=== PATIENT | male | born 1965 | race American Indian/Alaskan Native ===

== ENCOUNTER 2019-05-31 17:37 | Inpatient (IN) | payer OTHER ==
[2019-05-31] MEDS ORDERED: NACL 0.9% 500 ML 500 ML IV ONE (17:47)
--- NOTE | 2019-05-31 17:49 | Event Note ---
ED Screening Note Date of service: 05/31/19 Time: 17:47 ED Screening Note: This is a 54 y.o. M. that presents to the ER with N/V, cough, chest pain, and diaphoresis x 1 week. This initial assessment/diagnostic orders/clinical plan/treatment(s) is/are subject to change based on patients health status, clinical progression and re- assessment by fellow clinical providers in the ED. Further treatment and workup at subsequent clinical providers discretion. Patient/guardian urged not to elope from the ED as their condition may be serious if not clinically assessed and managed. Initial orders include: Labs, ekg, and CXR
[2019-05-31] MEDS ORDERED: MAXIPIME/NS 2 GM/100 ML 2 GM/100 ML BAG IV ONE (18:01)
--- NOTE | 2019-05-31 18:05 | Emergency Department Report ---
ED Shortness of Breath HPI - General Chief Complaint: Dyspnea/Respdistress Stated Complaint: SOB/FEVER/VOMITING Time Seen by Provider: 05/31/19 17:55 Source: patient Mode of arrival: Ambulatory Limitations: No Limitations - History of Present Illness Initial Comments: Patient is a 54-year-old male presents emergency room with complaints of shortness of breath, difficulty breathing, fever, chills, cough and nausea vomiting. Patient states his cough is worsening. Patient states this morning he started having shortness of breath. Patient denies chest pain. Patient denies abdominal pain. Patient states he is sweating a lot. Patient denies blood in his vomit. Patient states he simply is not feeling well. MD Complaint: shortness of breath, cough -: Sudden Severity: severe Consistency: constant Improves With: rest Worsens With: exertion, coughing, inspiration Context: recent URI Associated Symptoms: fever, cough, sputum production, nausea/vomiting Treatments Prior to Arrival: none - Related Data Home Oxygen Therapy: No Home Medications Medication Instructions Recorded Confirmed Last Taken No Known Home Medications [No 05/31/19 05/31/19 Unknown Reported Home Medications] Allergies Allergy/AdvReac Type Severity Reaction Status Date / Time No Known Allergies Allergy Unverified 05/31/19 17:41 ED Review of Systems ROS: Stated complaint: SOB/FEVER/VOMITING Other details as noted in HPI Constitutional: chills, diaphoresis, fever Eyes: denies: eye pain, eye discharge, vision change ENT: denies: ear pain, throat pain Respiratory: cough, shortness of breath. denies: wheezing Cardiovascular: denies: chest pain, palpitations Endocrine: no symptoms reported Gastrointestinal: nausea, vomiting. denies: abdominal pain, diarrhea Genitourinary: denies: urgency, dysuria Musculoskeletal: denies: back pain, joint swelling, arthralgia Skin: denies: rash, lesions Neurological: denies: headache, weakness, paresthesias Psychiatric: denies: anxiety, depression Hematological/Lymphatic: denies: easy bleeding, easy bruising ED Past Medical Hx - Past Medical History Previous Medical History?: Yes Hx Hypertension: Yes - Surgical History Past Surgical History?: No - Family History Family history: no significant - Social History Smoking Status: Never Smoker Substance Use Type: None - Medications Home Medications: Home Medications Medication Instructions Recorded Confirmed Last Taken Type No Known Home Medications [No 05/31/19 05/31/19 Unknown History Reported Home Medications] ED Physical Exam - General Limitations: No Limitations General appearance: alert, in distress, other (appears ill.) - Head Head exam: Present: atraumatic, normocephalic - Eye Eye exam: Present: normal appearance, PERRL Pupils: Present: normal accommodation - ENT ENT exam: Present: mucous membranes dry - Neck Neck exam: Present: normal inspection - Respiratory Respiratory exam: Present: respiratory distress, rhonchi. Absent: wheezes - Cardiovascular Cardiovascular Exam: Present: regular rate, normal rhythm. Absent: systolic mur mur, diastolic murmur, rubs, gallop - GI/Abdominal GI/Abdominal exam: Present: soft, normal bowel sounds. Absent: distended, tenderness, guarding - Rectal Rectal exam: Present: deferred - Extremities Exam Extremities exam: Present: normal inspection - Back Exam Back exam: Present: normal inspection - Neurological Exam Neurological exam: Present: alert, oriented X3 - Psychiatric Psychiatric exam: Present: normal affect, normal mood - Skin Skin exam: Present: warm, dry, intact, normal color. Absent: rash ED Course Vital Signs 05/31/19 05/31/19 05/31/19 17:46 17:55 18:01 Temperature 99.7 F H Pulse Rate 130 H 124 H 123 H Respiratory 22 19 Rate Blood Pressure 204/109 O2 Sat by Pulse 96 Oximetry 05/31/19 05/31/19 05/31/19 18:15 18:31 18:45 Temperature Pulse Rate 121 H 123 H 120 H Respiratory 25 H 29 H 27 H Rate Blood Pressure 186/108 210/116 O2 Sat by Pulse 91 87 Oximetry 05/31/19 05/31/19 05/31/19 18:55 19:00 19:15 Temperature Pulse Rate 121 H 122 H Respiratory 27 H 27 H Rate Blood Pressure 210/110 198/105 200/107 O2 Sat by Pulse 96 97 Oximetry 05/31/19 05/31/19 05/31/19 19:30 19:45 20:00 Temperature Pulse Rate 127 H 125 H 124 H Respiratory 22 32 H 32 H Rate Blood Pressure 195/107 195/107 200/111 O2 Sat by Pulse 99 99 98 Oximetry 05/31/19 05/31/19 05/31/19 20:15 20:25 20:30 Temperature 102.4 F H Pulse Rate 130 H 130 H Respiratory 25 H 17 Rate Blood Pressure 200/111 190/128 O2 Sat by Pulse 99 100 Oximetry 05/31/19 05/31/19 05/31/19 20:45 21:00 21:15 Temperature Pulse Rate 124 H 119 H 116 H Respiratory 31 H 20 17 Rate Blood Pressure 190/128 181/106 181/106 O2 Sat by Pulse 99 99 99 Oximetry 05/31/19 05/31/19 21:23 21:30 Temperature 99.7 F H Pulse Rate 115 H Respiratory 28 H Rate Blood Pressure 174/100 O2 Sat by Pulse 98 Oximetry - Reevaluation(s) Reevaluation #1: Initial evaluation done. Patient found to be tachycardic and hypoxic. Patient will be given fluids and placed on oxygen. Patient appears ill. 05/31/19 18:05 Reevaluation #2: Patient's heart rate is same. Patient still appears ill. Patient's oxygen saturation is better on 3 L of O2. Patient to be given a liter of fluids and his heart rate is still 123. Patient receiving fluids and antibiotics at this time. I discussed all results with patient. I discussed plan of care outpatient. Patient agrees to plan admission. Patient will be admitted to the hospitalist service. 05/31/19 19:05 - Consultations Consultation #1: Hospitalist consult for admission. Hospitalist to admit patient and assume of care patient. 05/31/19 19:10 ED Medical Decision Making - Lab Data Result diagrams: 05/31/19 18:11 05/31/19 18:11 - EKG Data -: EKG Interpreted by Me EKG shows normal: sinus rhythm, axis, intervals, QRS complexes, ST-T waves Rate: tachycardia - Radiology Data Radiology results: report reviewed interpreted by me: Left lung pneumonia CHEST 1 VIEW INDICATION: possible Sepsis. COMPARISON: None FINDINGS: SUPPORT DEVICES: None. HEART / MEDIASTINUM: No significant abnormality. LUNGS / PLEURA: Faint airspace changes left lower lobe ADDITIONAL FINDINGS: IMPRESSION: 1. Inflammatory process left lower lobe is a concern - Medical Decision Making Patient is a 54-year-old male that presents mentioned complaints of fever, cough, shortness of breath and nausea vomiting patient found to be tachycardic and hypoxic in triage. Patient brought immediately to a 2 acute care side of the ER. Patient given antibiotics and fluids. Patient is tachycardic with a liter of fluid. Patient admitted to the hospitalist service. Patient given antibiotics immediately. Patient agrees with plan of care. Patient's labs essentially unremarkable. Patient's last consistent with dehydration. Precise visit 2. Patient's chest x-ray shows left sided pneumonia - Differential Diagnosis shortness of breath. Fever. Cough.pna. sirs. hypoxia. Sepsis. Critical Care Time: Yes Critical care attestation.: If time is entered above; I have spent that time in minutes in the direct care of this critically ill patient, excluding procedure time. Critical Care Time: 45 minutes ED Disposition Clinical Impression: Tachycardia, SIRS (systemic inflammatory response syndrome), Hypertensive emergency, SOB (shortness of breath), Difficulty breathing, Cough, Hypoxia Pneumonia Qualifiers: Pneumonia type: due to unspecified organism Laterality: left Lung location: lower lobe of lung Qualified Code(s): J18.1 - Lobar pneumonia, unspecified organism Fever Qualifiers: Fever type: unspecified Qualified Code(s): R50.9 - Fever, unspecified Disposition: DC-09 OP ADMIT IP TO THIS HOSP Is pt being admited?: Yes Does the pt Need Aspirin: No Condition: Critical Time of Disposition: 19:08
[2019-05-31 18:23] LABS: Hemoglobin 13.7 gm/dl (11.8-15.2); Mean Corpuscular HGB Conc 35 % (32-34); Mean Corpuscular Volume 93 fl (84-94); Platelet Count 145 K/mm3 (140-440); Red Cell Distribution Width 14.2 % (13.2-15.2)
--- NOTE | 2019-05-31 18:23 | XRay Report ---
CHEST 1 VIEW INDICATION: possible Sepsis. COMPARISON: None FINDINGS: SUPPORT DEVICES: None. HEART / MEDIASTINUM: No significant abnormality. LUNGS / PLEURA: Faint airspace changes left lower lobe ADDITIONAL FINDINGS: IMPRESSION: 1. Inflammatory process left lower lobe is a concern Signer Name: Esdras Lucas MD Signed: 05/31/2019 6:19 PM Workstation Name: [id number]
[2019-05-31 18:36] LABS: INR 1.11 (0.87-1.13)
[2019-05-31 18:40] LABS: Alanine Aminotransferase 47 units/L (7-56); Albumin 4.3 g/dL (3.9-5); BUN/Creatinine Ratio 16; Blood Urea Nitrogen 13 mg/dL (9-20); Calcium 9.6 mg/dL (8.4-10.2); Hemolysis Index 0
[2019-05-31] MEDS ORDERED: NACL 0.9% 1000 ML IV ONE (18:47)
[2019-05-31] MEDS ORDERED: APRESOLINE IV ONE (18:47)
[2019-05-31] MEDS ORDERED: APRESOLINE ONE ×2 (18:50→22:05)
[2019-05-31] MEDS ORDERED: SODIUM CHLORIDE FLUSH SYRINGE 10 ML IV PRN (19:18)
[2019-05-31] MEDS ORDERED: ZOFRAN IV PRN (19:18)
[2019-05-31] MEDS ORDERED: PROVENTIL IH PRN (19:18)
[2019-05-31 19:54] LABS: Bilirubin,Urine NEG (Negative); Blood,Urine MOD (Negative); Color,Urine Amber (Yellow); Mucus,Urine FEW /HPF
[2019-05-31 20:01] LABS: Protein,Urine >500 mg/dL (Negative)
--- NOTE | 2019-05-31 20:17 | History and Physical Report ---
History of Present Illness Date of admission: 05/31/19 19:18 Chief complaint: I feel sick, and i cant breathe History of present illness: 54 YO Male with HTN presents to ED for evaluation. Pt states that he has experienced shortness of breath, generalized weakness, shaking chills, nausea, 2 episodes of vomiting over the 1 week, as well as nonproductive cough that is worsening over the past 2 days. Pt denies relief of symptoms with OTC medication. Pt transported to [facility] via private vehicle. Pt seen and evaluated in ED and found to have fever to 120.5, LLL Pneumonia complicated by SIRS and Acidosis. Pt denies CP, palpitations, trauma, BRBPR, skin rash, ingestion of food/water from new/different sources, or known ill contacts. Pt initiated on Pneumonia protocol and initiated on IV antibiotic therapy. Pt admitted to medical floor. No prior admission for review. No medication listed for reconciliation at time of admission. Past History Past Medical History: hypertension Past Surgical History: No surgical history, Other (reviewed) Social history: single. denies: smoking, alcohol abuse, prescription drug abuse Family history: hypertension Medications and Allergies Allergies Allergy/AdvReac Type Severity Reaction Status Date / Time No Known Allergies Allergy Unverified 05/31/19 17:41 Active Meds: Active Medications Acetaminophen (Tylenol) 650 mg PO Q4H PRN PRN Reason: Pain MILD(1-3)/Fever >100.5/KWON Albuterol (Proventil) 2.5 mg IH Q4HRT PRN PRN Reason: Shortness Of Breath Sodium Chloride (Nacl 0.45% 1000 Ml) 1,000 mls @ 75 mls/hr IV DIRECT [place] Ceftriaxone Sodium (Rocephin/Ns 2 Gm/100 Ml) 2 gm in 100 mls @ 200 mls/hr IV Q24HR [place]; Protocol Azithromycin 500 mg/ Sodium (Chloride) 250 mls @ 250 mls/hr IV Q24H [place]; Protocol Ondansetron HCl (Zofran) 4 mg IV Q8H PRN PRN Reason: Nausea And Vomiting Sodium Chloride (Sodium Chloride Flush Syringe 10 Ml) 10 ml IV BID [place] Sodium Chloride (Sodium Chloride Flush Syringe 10 Ml) 10 ml IV PRN PRN PRN Reason: LINE FLUSH Review of Systems Constitutional: fever, chills, weakness, malaise, no weight loss, no weight gain Ears, nose, mouth and throat: no ear pain, no ear discharge, no nose pain Cardiovascular: no chest pain, no orthopnea, no palpitations Respiratory: cough, shortness of breath, no excessive sputum, no hemoptysis Gastrointestinal: no nausea, no vomiting, no diarrhea, no constipation Genitourinary Male: no hematuria, no flank pain, no discharge, no urinary frequency, no urinary hesitancy Rectal: no pain, no incontinence, no bleeding Musculoskeletal: no neck stiffness, no neck pain, no shooting arm pain, no arm numbness/tingling Integumentary: no rash, no pruritis, no redness, no sores, no wounds Neurological: no paralysis, no weakness, no parathesias, no numbness, no tingling Psychiatric: no memory loss, no change in sleep habits, no sleep disturbances, no insomnia, no hypersomnia, no change in appetite Endocrine: no cold intolerance, no heat intolerance, no polyphagia, no excessive thirst, no polydipsia, no polyuria Hematologic/Lymphatic: no easy bruising, no easy bleeding, no lymphadenopathy Allergic/Immunologic: no urticaria, no allergic rhinitis, no wheezing, no persistent infections, no anaphylaxis Exam - Constitutional Vitals: Temp Pulse Resp BP Pulse Ox 99.7 F H 130 H 22 210/110 96 05/31/19 17:46 05/31/19 17:46 05/31/19 17:46 05/31/19 18:55 05/31/19 17:46 General appearance: Present: mild distress - EENT Eyes: Present: PERRL ENT: hearing intact, clear oral mucosa - Neck Neck: Present: supple, normal ROM - Respiratory Respiratory effort: labored Respiratory: bilateral: diminished, rhonchi - Cardiovascular Heart Sounds: Present: S1 & S2. Absent: rub, click - Extremities Extremities: pulses symmetrical, No edema Peripheral Pulses: within normal limits - Abdominal General gastrointestinal: Present: soft, non-tender, non-distended, normal bowel sounds Male genitourinary: Present: normal - Integumentary Integumentary: Present: clear, warm, dry - Musculoskeletal Musculoskeletal: gait normal, strength equal bilaterally - Psychiatric Psychiatric: appropriate mood/affect, intact judgment & insight - Neurologic Neurologic: CNII-XII intact, moves all extremities Results - Labs CBC & Chem 7: 05/31/19 18:11 05/31/19 18:11 Labs: Abnormal lab results 05/31/19 05/31/19 05/31/19 Range/Units 18:11 18:11 18:11 MCH 33 H (28-32) pg MCHC 35 H (32-34) % VBG pH 7.452 H (7.320-7.420) Sodium 136 L (137-145) mmol/L Potassium 3.4 L (3.6-5.0) mmol/L Chloride 93.3 L (98-107) mmol/L Carbon Dioxide 21 L (22-30) mmol/L Glucose 124 H (75-100) mg/dL AST 43 H (5-40) units/L Total Protein 9.0 H (6.3-8.2) g/dL Assessment and Plan - Patient Problems (1) Pneumonia Current Visit: Yes Status: Acute Qualifiers: Pneumonia type: due to unspecified organism Laterality: left Lung location: lower lobe of lung Qualified Code(s): J18.1 - Lobar pneumonia, unspecified organism Plan to address problem: Pneumonia Protocol: IV antibiotic therapy, supplemental oxygen, nebulizer therapy, blood cultures, chest x ray, CBC, CMP, (2) Acidosis Current Visit: Yes Status: Acute Plan to address problem: IV bicarbonate, repeat bmp in am. (3) HTN (hypertension) Current Visit: Yes Status: Acute Qualifiers: Hypertension type: essential hypertension Qualified Code(s): I10 - Essential (primary) hypertension Plan to address problem: Monitor BP q shift, supportive care. (4) SIRS (systemic inflammatory response syndrome) Current Visit: Yes Status: Acute Plan to address problem: IV antibiotic therapy, IVF resuscitation therapy, HIV 1/2, Influenza swab, CBC, CMP, chest x ray, urinalysis, blood cultures. (5) Hyponatremia syndrome Current Visit: Yes Status: Acute Plan to address problem: IVF resuscitation therapy, repeat bmp in am. (6) Hypokalemia Current Visit: Yes Status: Acute Plan to address problem: dietary supplementation: banana daily, orange juice, repeat bmp in am. (7) DVT prophylaxis Current Visit: Yes Status: Acute Plan to address problem: SCD to BLE while in bed, prophylactic lovenox
[2019-05-31 20:25] LABS: Band Neutrophils # (Manual) 2.9 K/mm3; Basophils % (Manual) 0 % (0.0-1.8); Eosinophils % (Manual) 0 % (0.0-4.3); Total Cells Counted 100
[2019-05-31 20:26] LABS: Giant Platelets Few; Hypochromasia 1+; Large Platelets Few; Platelet Estimate Consistent w Auto
[2019-05-31] MEDS ORDERED: TYLENOL ONE (20:29)
[2019-05-31] MEDS: ZITHROMAX 500 MG in NACL 0.9% 250ML 250 ML IV SCH (20:32)
[2019-05-31] MEDS: TYLENOL PO PRN (20:35)
[2019-05-31] MEDS: APRESOLINE IV PRN (22:04)
--- NOTE | 2019-05-31 22:07 | Cat Scan Report ---
CTA CHEST WITH IV CONTRAST INDICATION / CLINICAL INFORMATION: TOLD BY DR THAT HE HAS PNEUMONIA IN LEFT LUNG. HAVING CHEST PAIN. TECHNIQUE: Axial CT images were obtained through the chest after injection of 100 cc Omnipaque 350 milligrams pe rcent IV contrast. 3 plane MIP and/or 3D reconstructions were produced. All CT scans at this location are performed using CT dose reduction for ALARA by means of automated exposure control. COMPARISON: None available. FINDINGS: PULMONARY ARTERIES: No pulmonary emboli. THORACIC AORTA: No significant abnormality. HEART: No significant abnormality. CORONARY ARTERIES: No significant calcification. PLEURA: No pleural effusion. No pneumothorax. LYMPH NODES: No significant adenopathy. LUNGS: Multifocal airspace disease is present with consolidated lower lobes left greater than right. ADDITIONAL FINDINGS: None. UPPER ABDOMEN: No acute findings. SKELETAL STRUCTURES: No significant osseous abnormality. IMPRESSION: 1. No CT evidence for pulmonary embolism. 2. Multifocal airspace change involving both lungs with consolidated lower lobes as noted, pneumonia is a concern recommend clinical correlation Signer Name: Esdras Lucas MD Signed: 05/31/2019 10:03 PM Workstation Name: [id number]
[2019-05-31] MEDS: NACL 0.45% 1000 ML 1,000 ML IV SCH (22:37)
[2019-05-31] MEDS: SODIUM CHLORIDE FLUSH SYRINGE 10 ML IV SCH (22:37)
[2019-06-01] MEDS ORDERED: APRESOLINE IV ONE (02:15)
[2019-06-01] MEDS: TYLENOL PO PRN ×2 (02:47→11:24)
[2019-06-01 06:46] LABS: Alanine Aminotransferase 33 units/L (7-56); Albumin 3.3 g/dL (3.9-5); BUN/Creatinine Ratio 11; Blood Urea Nitrogen 8 mg/dL (9-20); Calcium 8.3 mg/dL (8.4-10.2); Hemolysis Index 5
[2019-06-01] MEDS ORDERED: K-DUR PO ONE (09:00)
[2019-06-01] MEDS: ROCEPHIN/NS 2 GM/100 ML 2 GM/100 ML BAG IV SCH (09:19)
[2019-06-01] MEDS: SODIUM CHLORIDE FLUSH SYRINGE 10 ML IV SCH (09:20)
--- NOTE | 2019-06-01 09:41 | Progress Note ---
Assessment and Plan / LLL Pneumonia, CAP on IV antibiotic therapy, cont supplemental oxygen, nebulizer therapy, follow blood cultures, / HTN (hypertension) Monitor BP q shift, supportive care. hydralazine iv as needed / SIRS (systemic inflammatory response syndrome) IV antibiotic therapy, follow cx / Hyponatremia syndrome IVF resuscitation therapy, repeat bmp in am. / Hypokalemia replete IV and Po dietary supplementation: banana daily, orange juice, repeat bmp in am. / DVT prophylaxis SCD to BLE while in bed, prophylactic lovenox Physical exam: General appearance: Present: mild distress - EENT Eyes: Present: PERRL ENT: hearing intact, clear oral mucosa - Neck Neck: Present: supple, normal ROM - Respiratory Respiratory effort: labored Respiratory: bilateral: diminished, rhonchi - Cardiovascular Heart Sounds: Present: S1 & S2. Absent: rub, click - Extremities Extremities: pulses symmetrical, No edema Peripheral Pulses: within normal limits - Abdominal General gastrointestinal: Present: soft, non-tender, non-distended, normal bowel sounds Male genitourinary: Present: normal - Integumentary Integumentary: Present: clear, warm, dry - Musculoskeletal Musculoskeletal: gait normal, strength equal bilaterally - Psychiatric Psychiatric: appropriate mood/affect, intact judgment & insight - Neurologic Neurologic: CNII-XII intact, moves all extremities Subjective Date of service: 06/01/19 Interval history: patient seen and examined c/o pleuretic chest pain, breathing better tolerating diet Objective - Constitutional Vitals: Vital Signs - 12hr 05/31/19 05/31/19 06/01/19 22:28 23:10 02:46 Temperature 98.6 F Pulse Rate 114 H 105 H Respiratory 20 Rate Blood Pressure 203/110 216/114 O2 Sat by Pulse 95 98 Oximetry 06/01/19 06/01/19 06/01/19 02:47 03:47 05:42 Temperature 99.0 F Pulse Rate 96 H Respiratory 17 18 20 Rate Blood Pressure 178/98 O2 Sat by Pulse 96 Oximetry - Labs CBC & Chem 7: 05/31/19 18:11 06/02/19 07:22 Labs: Abnormal lab results 05/31/19 05/31/19 05/31/19 Range/Units 18:11 18:11 18:11 MCH 33 H (28-32) pg MCHC 35 H (32-34) % Lymphocytes % (Manual) 6.0 L (13.4-35.0) % Lymphocytes # (Manual) 0.5 L (1.2-5.4) K/mm3 VBG pH 7.452 H (7.320-7.420) Sodium 136 L (137-145) mmol/L Potassium 3.4 L (3.6-5.0) mmol/L Chloride 93.3 L (98-107) mmol/L Carbon Dioxide 21 L (22-30) mmol/L BUN (9-20) mg/dL Creatinine (0.8-1.5) mg/dL Glucose 124 H (75-100) mg/dL Calcium (8.4-10.2) mg/dL AST 43 H (5-40) units/L Total Protein 9.0 H (6.3-8.2) g/dL Albumin (3.9-5) g/dL 06/01/19 Range/Units 05:39 MCH (28-32) pg MCHC (32-34) % Lymphocytes % (Manual) (13.4-35.0) % Lymphocytes # (Manual) (1.2-5.4) K/mm3 VBG pH (7.320-7.420) Sodium 136 L (137-145) mmol/L Potassium 2.9 L* (3.6-5.0) mmol/L Chloride (98-107) mmol/L Carbon Dioxide (22-30) mmol/L BUN 8 L (9-20) mg/dL Creatinine 0.7 L (0.8-1.5) mg/dL Glucose 103 H (75-100) mg/dL Calcium 8.3 L (8.4-10.2) mg/dL AST (5-40) units/L Total Protein (6.3-8.2) g/dL Albumin 3.3 L (3.9-5) g/dL
[2019-06-01] MEDS: KCL 10MEQ/100ML 10 MEQ/100 ML BAG IV SCH ×2 (11:39→13:57)
[2019-06-01] MEDS: APRESOLINE IV PRN ×2 (11:48→18:46)
[2019-06-01] MEDS: NACL 0.45% 1000 ML 1,000 ML IV SCH (13:57)
[2019-06-01] MEDS: ZITHROMAX 500 MG in NACL 0.9% 250ML 250 ML IV SCH (20:46)
[2019-06-02] MEDS: TYLENOL PO PRN ×2 (00:05→23:56)
[2019-06-02] MEDS: APRESOLINE IV PRN ×4 (01:48→23:55)
[2019-06-02] MEDS: NACL 0.45% 1000 ML 1,000 ML IV SCH (05:27)
[2019-06-02 07:56] LABS: BUN/Creatinine Ratio 10; Blood Urea Nitrogen 7 mg/dL (9-20); Calcium 8.9 mg/dL (8.4-10.2); Hemolysis Index 3
[2019-06-02] MEDS ORDERED: K-DUR PO ONE (09:00)
[2019-06-02] MEDS: ROCEPHIN/NS 2 GM/100 ML 2 GM/100 ML BAG IV SCH (09:20)
[2019-06-02] MEDS: K-DUR PO SCH (10:19)
[2019-06-02] MEDS: SODIUM CHLORIDE FLUSH SYRINGE 10 ML IV SCH ×3 (10:25→21:30)
[2019-06-02] MEDS: KCL 10MEQ/100ML 10 MEQ/100 ML BAG IV SCH ×3 (10:25→12:38)
--- NOTE | 2019-06-02 14:33 | Progress Note ---
Assessment and Plan / LLL Pneumonia, CAP on IV antibiotic therapy, cont supplemental oxygen, nebulizer therapy, follow blood cultures, / HTN (hypertension), accelerated Monitor BP q shift, supportive care. hydralazine iv as needed, add norvasc / SIRS (systemic inflammatory response syndrome) IV antibiotic therapy, follow cx / Hyponatremia syndrome IVF resuscitation therapy, repeat bmp in am. / Hypokalemia replete IV and Po dietary supplementation: banana daily, orange juice, repeat bmp in am. /Alcohol abuse - watch for withdrawal, place on folic acid, thiamin / DVT prophylaxis SCD to BLE while in bed, prophylactic lovenox Physical exam: General appearance: Present: mild distress - EENT Eyes: Present: PERRL ENT: hearing intact, clear oral mucosa - Neck Neck: Present: supple, normal ROM - Respiratory Respiratory effort: labored Respiratory: bilateral: diminished, rhonchi - Cardiovascular Heart Sounds: Present: S1 & S2. Absent: rub, click - Extremities Extremities: pulses symmetrical, No edema Peripheral Pulses: within normal limits - Abdominal General gastrointestinal: Present: soft, non-tender, non-distended, normal bowel sounds Male genitourinary: Present: normal - Integumentary Integumentary: Present: clear, warm, dry - Musculoskeletal Musculoskeletal: gait normal, strength equal bilaterally - Psychiatric Psychiatric: appropriate mood/affect, intact judgment & insight - Neurologic Neurologic: CNII-XII intact, moves all extremities Subjective Date of service: 06/02/19 Interval history: patient seen and examined breathing better tolerating diet K level 2.9 today Objective - Constitutional Vitals: Vital Signs - 12hr 06/02/19 06/02/19 06/02/19 05:15 09:28 11:48 Temperature 98.4 F 99.1 F Pulse Rate 81 81 92 H Respiratory 20 22 Rate Blood Pressure 179/99 179/99 167/90 O2 Sat by Pulse 97 97 Oximetry - Labs CBC & Chem 7: 05/31/19 18:11 06/03/19 12:34 Labs: Abnormal lab results 06/02/19 Range/Units 07:22 Potassium 2.8 L* (3.6-5.0) mmol/L Chloride 97.5 L (98-107) mmol/L BUN 7 L (9-20) mg/dL Creatinine 0.7 L (0.8-1.5) mg/dL
--- NOTE | 2019-06-02 15:26 | Discharge Summary ---
Providers - Providers Date of Admission: 05/31/19 19:18 Date of discharge: 06/02/19 Attending physician: FLEX DRISCOLL [facility] Condition: Critical Hospital course: Discharge diagnosis; / LLL Pneumonia, CAP on IV antibiotic therapy, cont supplemental oxygen, nebulizer therapy, follow blood cultures, / HTN (hypertension), accelerated Monitor BP q shift, supportive care. hydralazine iv as needed, add norvasc / SIRS (systemic inflammatory response syndrome) IV antibiotic therapy, follow cx / Hyponatremia syndrome IVF resuscitation therapy, repeat bmp in am. / Hypokalemia, likely from chronic alcohol abuse and low Mg repleted IV and Po encouraged dietary supplementation: banana daily, orange juice, /hypomagnesemia, repleted /Alcohol abuse - watch for withdrawal, place on folic acid, thiamin / DVT prophylaxis SCD to BLE while in bed, prophylactic lovenox Physical exam: General appearance: Present: mild distress - EENT Eyes: Present: PERRL ENT: hearing intact, clear oral mucosa - Neck Neck: Present: supple, normal ROM - Respiratory Respiratory effort: labored Respiratory: bilateral: diminished, rhonchi - Cardiovascular Heart Sounds: Present: S1 & S2. Absent: rub, click - Extremities Extremities: pulses symmetrical, No edema Peripheral Pulses: within normal limits - Abdominal General gastrointestinal: Present: soft, non-tender, non-distended, normal bowel sounds Male genitourinary: Present: normal - Integumentary Integumentary: Present: clear, warm, dry - Musculoskeletal Musculoskeletal: gait normal, strength equal bilaterally - Psychiatric Psychiatric: appropriate mood/affect, intact judgment & insight - Neurologic Neurologic: CNII-XII intact, moves all extremities Disposition: DC-01 TO HOME OR SELFCARE Time spent for discharge: 34 minutes Core Measure Documentation - Palliative Care Palliative Care/ Comfort Measures: Not Applicable - Core Measures Any of the following diagnoses?: none Exam - Constitutional Vitals: Temp Pulse Resp BP Pulse Ox 99.1 F 92 H 22 167/90 97 06/02/19 11:48 06/02/19 11:48 06/02/19 11:48 06/02/19 11:48 06/02/19 11:48 Plan Activity: advance as tolerated Weight Bearing Status: Weight Bear as Tolerated Diet: low fat Additional Instructions: repeat BMP in 2 days [facility] [Primary Care Provider] - 7 Days SEA DELCID MD [Staff Physician] - 7 Days Prescriptions: Potassium Chloride [K-Dur] 20 meq PO BID #10 tab levoFLOXacin [Levaquin] 750 mg PO QDAY #5 tablet
[2019-06-02] MEDS ORDERED: NORVASC PO SCH (19:00)
[2019-06-02] MEDS: ZITHROMAX 500 MG in NACL 0.9% 250ML 250 ML IV SCH (21:30)
[2019-06-03] MEDS: APRESOLINE IV PRN (05:34)
[2019-06-03] MEDS ORDERED: NORVASC PO SCH ×2 (08:00→08:30)
[2019-06-03 08:20] LABS: BUN/Creatinine Ratio 7; Blood Urea Nitrogen 5 mg/dL (9-20); Calcium 9.4 mg/dL (8.4-10.2); Hemolysis Index 9
[2019-06-03] MEDS: ROCEPHIN/NS 2 GM/100 ML 2 GM/100 ML BAG IV SCH (09:08)
[2019-06-03] MEDS: K-DUR PO SCH (09:08)
[2019-06-03] MEDS: SODIUM CHLORIDE FLUSH SYRINGE 10 ML IV SCH (09:09)
[2019-06-03] MEDS ORDERED: K-DUR PO ONE ×2 (10:00→15:00)
[2019-06-03] MEDS ORDERED: COREG PO SCH (10:00)
[2019-06-03] MEDS ORDERED: ATIVAN IV PRN (10:24)
[2019-06-03] MEDS ORDERED: FOLVITE PO SCH (11:00)
[2019-06-03] MEDS ORDERED: VITAMIN B-1 PO SCH (11:00)
[2019-06-03] MEDS ORDERED: PROVENTIL IH PRN (11:51)
--- NOTE | 2019-06-03 12:27 | Consultation ---
History of Present Illness - Reason for Consult Consult date: 06/03/19 hypokalemia Past History Past Medical History: hypertension Past Surgical History: No surgical history, Other (reviewed) Social history: single. denies: smoking, alcohol abuse, prescription drug abuse Family history: hypertension Medications and Allergies Allergies Allergy/AdvReac Type Severity Reaction Status Date / Time No Known Allergies Allergy Unverified 05/31/19 17:41 Home Medications Medication Instructions Recorded Confirmed Last Taken Type Potassium Chloride [K-Dur] 30 meq PO QDAY #2 tablet 06/02/19 Unknown Rx levoFLOXacin [Levaquin] 750 mg PO QDAY #5 tablet 06/02/19 Unknown Rx Active Meds: Active Medications Acetaminophen (Tylenol) 650 mg PO Q4H PRN PRN Reason: Pain MILD(1-3)/Fever >100.5/KWON Last Admin: 06/02/19 23:56 Dose: 650 mg Documented by: Albuterol (Proventil) 2.5 mg IH Q4HRT PRN PRN Reason: Shortness Of Breath Amlodipine Besylate (Norvasc) 10 mg PO DAILY [facility] Last Admin: 06/03/19 09:09 Dose: 10 mg Documented by: Carvedilol (Coreg) 3.125 mg PO BID [facility] Last Admin: 06/03/19 09:09 Dose: 3.125 mg Documented by: Folic Acid (Folvite) 1 mg PO QDAY [place] Hydralazine HCl (Apresoline) 5 mg IV Q6HR PRN PRN Reason: Hypertension Last Admin: 06/03/19 05:34 Dose: 5 mg Documented by: Ceftriaxone Sodium (Rocephin/Ns 2 Gm/100 Ml) 2 gm in 100 mls @ 200 mls/hr IV Q24HR [facility]; Protocol Last Admin: 06/03/19 09:08 Dose: 200 mls/hr Documented by: Azithromycin 500 mg/ Sodium (Chloride) 250 mls @ 250 mls/hr IV Q24H [facility]; Protocol Stop: 06/04/19 20:59 Last Admin: 06/02/19 21:30 Dose: 250 mls/hr Documented by: Lorazepam (Ativan) 1 mg IV Q4H PRN PRN Reason: Alcohol Withdrawal Ondansetron HCl (Zofran) 4 mg IV Q8H PRN PRN Reason: Nausea And Vomiting Potassium Chloride (K-Dur) 30 meq PO QDAY [facility] Last Admin: 06/03/19 09:08 Dose: 30 meq Documented by: Sodium Chloride (Sodium Chloride Flush Syringe 10 Ml) 10 ml IV BID [facility] Last Admin: 06/03/19 09:09 Dose: 10 ml Documented by: Sodium Chloride (Sodium Chloride Flush Syringe 10 Ml) 10 ml IV PRN PRN PRN Reason: LINE FLUSH Last Admin: 06/02/19 10:25 Dose: 10 ml Documented by: Thiamine HCl (Vitamin B-1) 100 mg PO QDAY [facility] Exam - Vital Signs Vital signs: Vital Signs Temp Pulse Resp BP Pulse Ox 99.7 F H 130 H 22 204/109 96 05/31/19 17:46 05/31/19 17:46 05/31/19 17:46 05/31/19 17:46 05/31/19 17:46 Results - Lab Results 05/31/19 18:11 06/03/19 07:14 Most recent lab results Calcium 9.4 mg/dL (8.4-10.2) 06/03/19 07:14
[2019-06-03 13:04] LABS: BUN/Creatinine Ratio 10; Blood Urea Nitrogen 6 mg/dL (9-20); Calcium 9.8 mg/dL (8.4-10.2); Hemolysis Index 6
[2019-06-03 13:58] LABS: Chloride, Urine 160.5 mmolL (110-250); Creatinine,Urine 169.5 mg/dL (0.1-20.0); Protein/Creatinine Ratio,Urine 0.25
[2019-06-03] MEDS ORDERED: MAGNESIUM SULFATE 2GM/50ML 2 GM/50 ML BAG IV ONE (14:30)
[2019-06-03] MEDS ORDERED: APRESOLINE IV ONE (17:27)
[2019-06-03 18:36] VITALS: BP 141/102
== END 2019-06-03 18:56 | disposition home or self-care (01) | DRG 194 ==
LOC: ED 17:37 → 3A 19:18
PROVIDERS: ADMIT Internal Medicine; ATTEND Internal Medicine
DX: J18.1 Lobar pneumonia, unspecified organism (principal); I16.1 Hypertensive emergency; E87.1 Hypo-osmolality and hyponatremia; R65.10 Systemic inflammatory response syndrome (SIRS) of non-infectious origin without acute organ dysfunction; E87.6 Hypokalemia; F10.10 Alcohol abuse, uncomplicated; E83.42 Hypomagnesemia; Y90.9 Presence of alcohol in blood, level not specified; I10 Essential (primary) hypertension; F17.210 Nicotine dependence, cigarettes, uncomplicated; Z71.6 Tobacco abuse counseling; Z82.49 Family history of ischemic heart disease and other diseases of the circulatory system
CPT/HCPCS: 36415; 71045; 71275; 80048; 80053; 81001; 82140; 82232; 82436; 82570; 82805; 83615; 83735; 83935; 83986; 84100; 84132; 84133; 84156; 84165; 84166; 84300; 85007; 85025; 85610; 87040; 87086; 87205; 87806; 93005; 93010; 96365; 96366; 96367; 96375; 99406; G0378; J0360; J0456; J0692; J0696; J3475; J3480; J7030; J7040; J7050; Q9967